=== PATIENT | female | born 1995 | race Two or more races ===

== ENCOUNTER 2021-07-02 08:11 | Emergency (ER) | payer OTHER ==
[~2021-07-02] VITALS: Ht 160 cm; Wt 113.6 kg
[~2021-07-02 08:11] MED LIST: ALBU17AE16 IH; PIOG45TA4 PO
[2021-07-02] MEDS ORDERED: LINA5TAB PO (08:25)
[2021-07-02] MEDS ORDERED: EMPA10TA PO (08:25)
[2021-07-02] MEDS ORDERED: ONDANSETRON HCL 4 MG/2 ML VIAL IVP ONE (09:00)
[2021-07-02] MEDS ORDERED: SODIUM CHLORIDE 0.9% 1,000 ML IV ONE (09:00)
[2021-07-02] MEDS ORDERED: MORPHINE SULFATE 4 MG/ML SYRINGE IVP ONE (09:00)
[2021-07-02 09:06] LABS: BASOPHILS % (AUTO) 0.4 % (0.0-2.0); EOSINOPHILS % (AUTO) 0.5 % (1.0-6.0); HEMATOCRIT 42.3 % (36-46); HEMOGLOBIN 14.4 g/dL (12.0-16.0); LYMPHOCYTES # (AUTO) 2.1 K/uL (1.0-4.8); LYMPHOCYTES % (AUTO) 14.1 % (22.0-44.0); MEAN CORPUSCULAR HEMOGLOBIN 28.2 pg (26.0-34.0); MEAN CORPUSCULAR HGB CONC 34.1 G/dL (31.0-37.0); MEAN CORPUSCULAR VOLUME 83 fL (80-100); MONOCYTES # (AUTO) 0.9 K/uL (0.1-1.0); MONOCYTES % (AUTO) 6.1 % (2.0-9.0); NEUTROPHILS # (AUTO) 11.6 K/uL (1.8-7.7); NEUTROPHILS % (AUTO) 78.9 % (40.0-70.0); PLATELET COUNT (AUTO) 368 K/uL (150-450); RED BLOOD CELL COUNT(AUTO) 5.11 MIL/uL (4.00-5.20); RED CELL DISTRIBUTION WIDTH 13.4 % (11.5-14.5)
[2021-07-02 09:14] LABS: ANION GAP 11 mmol/L (8-16); CALCIUM, TOTAL 8.9 mg/dL (8.8-10.5); CARBON DIOXIDE 25 mmol/L (22-29); CHLORIDE 98 mmol/L (98-107); CREATININE 0.76 mg/dL (0.60-1.30); GLOMERULAR FILTR. RATE CALC > 60 mL/min (>60); GLUCOSE,RANDOM 248 mg/dL (70-110); POTASSIUM 3.8 mmol/L (3.5-5.1); SODIUM SERUM 134 mmol/L (136-145); UREA NITROGEN, BLOOD 14 mg/dL (7-18)
[2021-07-02 09:21] LABS: ALANINE AMINOTRANSFERASE 57 U/L (12-78); ALBUMIN 4.4 g/dL (3.4-5.0); ALKALINE PHOSPHATASE 65 U/L (46-116); ASPARTATE AMINOTRANSFERASE 35 U/L (15-37); BILIRUBIN,TOTAL 0.7 mg/dL (0.1-1.0); LIPASE 34 U/L (73-393); TOTAL PROTEIN, SERUM 8.5 g/dL (6.4-8.2)
[2021-07-02] MEDS ORDERED: IOHEXOL 350 MG/ML 150 ML VIAL ONE (09:35)
[2021-07-02] MEDS ORDERED: SODIUM CHLORIDE 0.9% 100 ML ONE (09:35)
[2021-07-02] MEDS ORDERED: PB/HYOSCY/ATR/SCOP/LIDO/MAALOX 55 ML BOTTLE PO ONE (13:00)
[2021-07-02] MEDS ORDERED: OMEP20 PO (13:02)
[2021-07-02 13:20] LABS: APPEARANCE,URINE CLEAR (CLEAR); BILIRUBIN,URINE NEGATIVE (NEGATIVE); GLUCOSE, URINE (UA) 250 mg/dL (NEGATIVE); KETONES,URINE 40 mg/dL (NEGATIVE); LEUKOCYTE ESTERASE ,URINE TRACE (NEGATIVE); NITRATE,URINE NEGATIVE (NEGATIVE); OCCULT BLOOD,URINE SMALL (NEGATIVE); PROTEIN,URINE NEGATIVE (NEGATIVE); UROBILINOGEN,URINE 0.2 mg/dL (<=1.0)
[2021-07-02 13:23] LABS: BACTERIA,URINE None Seen /HPF (None Seen)
[2021-07-02 13:24] LABS: SQUAMOUS EPITHELIAL CELL,UR Moderate /LPF (None Seen)
[2021-07-02 13:35] VITALS: BP 154/76
[2021-07-03] MEDS ORDERED: [UNRECOGNIZED DRUG - REMARK] CLINICAL (00:08)
[2021-07-05] MEDS ORDERED: UNKNOWN ANTIBIOTIC PO (16:19)
== END 2021-07-02 13:55 | disposition home or self-care (01) ==
LOC: EMS 08:18
DX: K29.70 Gastritis, unspecified, without bleeding (principal); E11.9 Type 2 diabetes mellitus without complications; J45.909 Unspecified asthma, uncomplicated; Z79.899 Other long term (current) drug therapy
CPT/HCPCS: 36415; 74177; 80053; 81001; 81025; 82962; 83690; 84703; 85025; 93005; 96361; 96374; 96375; 99285; J2270; J2405; J7030; J7050; Q9967

== ENCOUNTER 2021-11-20 15:05 | Emergency (ER) | payer OTHER ==
[~2021-11-20] VITALS: Ht 160 cm; Wt 113.6 kg
[~2021-11-20 15:05] MED LIST changes: -ALBU17AE16 IH; +EMPA10TA3 PO; +LINA5TAB PO; +METO-296 PO; +OMEP20 PO; -PIOG45TA4 PO
[2021-11-20] MEDS ORDERED: AMOX1TAB16 PO (16:19)
[2021-11-20] MEDS ORDERED: PERTUSS(ACELL),DIPH,TET VAC/PF 0.5 ML SYRINGE IM. ONE (16:30)
[2021-11-20 16:49] VITALS: BP 131/72
== END 2021-11-20 17:28 | disposition home or self-care (01) ==
LOC: EMS 15:12
DX: S61.452A Open bite of left hand, initial encounter (principal); E11.9 Type 2 diabetes mellitus without complications; F12.90 Cannabis use, unspecified, uncomplicated; J45.909 Unspecified asthma, uncomplicated; K31.84 Gastroparesis; W54.0XXA Bitten by dog, initial encounter; Y93.01 Activity, walking, marching and hiking; Y92.89 Other specified places as the place of occurrence of the external cause; Y99.8 Other external cause status; K21.9 Gastro-esophageal reflux disease without esophagitis; Z90.49 Acquired absence of other specified parts of digestive tract
CPT/HCPCS: 90471; 90715; 99283

== ENCOUNTER 2022-11-18 15:55 | Emergency (ER) | payer OTHER ==
[~2022-11-18] VITALS: Ht 160 cm; Wt 118.2 kg
[~2022-11-18 15:55] MED LIST changes: +AMOX1TAB16 PO; -EMPA10TA3 PO; +LEVO750T68 PO; -LINA5TAB PO; -METO-296 PO; -OMEP20 PO; +ONDA-104 PO; +SEMA1PEN3 SQ; +TRAM-559 PO
[2022-11-18 16:14] VITALS: TEMP 98.6
[2022-11-18] MEDS ORDERED: RABIES VACCINE, HUMAN DIPLOID/PF 2.5 UNITS/ML VIAL IM. ONE (16:30)
[2022-11-18 17:28] VITALS: BP 123/70; PULSE 84; RESP 16
== END 2022-11-18 18:00 | disposition home or self-care (01) ==
LOC: EMS 16:14 → UNDOADMIN 17:50 → 5S 17:50
DX: S91.351D Open bite, right foot, subsequent encounter (principal); Z23 Encounter for immunization; E11.9 Type 2 diabetes mellitus without complications; J45.909 Unspecified asthma, uncomplicated; K21.9 Gastro-esophageal reflux disease without esophagitis; F12.90 Cannabis use, unspecified, uncomplicated; W54.0XXD Bitten by dog, subsequent encounter
CPT/HCPCS: 90471; 90675; 99283; 99285

== ENCOUNTER 2022-11-25 09:16 | Emergency (ER) | payer OTHER ==
[~2022-11-25] VITALS: Ht 160 cm; Wt 118.2 kg
[2022-11-25 09:22] VITALS: TEMP 98.8
[2022-11-25] MEDS ORDERED: RABIES VACCINE, HUMAN DIPLOID/PF 2.5 UNITS/ML VIAL IM. ONE (09:45)
[2022-11-25 10:36] VITALS: BP 145/63; PULSE 75; RESP 18
== END 2022-11-25 11:06 | disposition home or self-care (01) ==
LOC: EMS 09:19
DX: S91.351D Open bite, right foot, subsequent encounter (principal); J45.909 Unspecified asthma, uncomplicated; E11.9 Type 2 diabetes mellitus without complications; F12.90 Cannabis use, unspecified, uncomplicated; Z23 Encounter for immunization; Z87.891 Personal history of nicotine dependence; Z90.49 Acquired absence of other specified parts of digestive tract; W54.0XXD Bitten by dog, subsequent encounter
CPT/HCPCS: 82962; 90471; 90675; 99282

== ENCOUNTER 2023-03-14 15:47 | Inpatient (IN) | payer OTHER ==
[~2023-03-14] VITALS: Ht 160 cm; Wt 113.6 kg
[~2023-03-14 15:47] MED LIST changes: -AMOX1TAB16 PO; +DOCU-385 PO; -LEVO750T68 PO; +METO5TAB87 PO; +OMEP-99 PO
[2023-03-14 16:26] LABS: GLUCOMETER DEV NAME(LOC) ERT.5; GLUCOSE,POINT OF CARE 364 MG/DL (70-110)
[2023-03-14] MEDS ORDERED: SODIUM CHLORIDE 0.9% 1,000 ML IV ONE (18:00)
[2023-03-14] MEDS ORDERED: METOCLOPRAMIDE HCL 5 MG/ML 2 ML VIAL IVP ONE (18:00)
[2023-03-14] MEDS ORDERED: SEMA0.258 SQ (18:06)
[2023-03-14] MEDS ORDERED: FAMOTIDINE 20 MG/2 ML VIAL IVP ONE (18:30)
[2023-03-14 19:07] LABS: BASOPHILS % (AUTO) 0.1 % (0.0-2.0); EOSINOPHILS % (AUTO) 0 % (1.0-6.0); HEMATOCRIT 43.4 % (36-46); HEMOGLOBIN 14.3 g/dL (12.0-16.0); LYMPHOCYTES # (AUTO) 1.3 K/uL (1.0-4.8); LYMPHOCYTES % (AUTO) 8.2 % (22.0-44.0); MEAN CORPUSCULAR HEMOGLOBIN 27.6 pg (26.0-34.0); MEAN CORPUSCULAR HGB CONC 33.1 G/dL (31.0-37.0); MEAN CORPUSCULAR VOLUME 84 fL (80-100); MONOCYTES # (AUTO) 1.2 K/uL (0.1-1.0); MONOCYTES % (AUTO) 7.3 % (2.0-9.0); NEUTROPHILS # (AUTO) 13.4 K/uL (1.8-7.7); NEUTROPHILS % (AUTO) 84.4 % (40.0-70.0); PLATELET COUNT (AUTO) 375 K/uL (150-450); RED CELL DISTRIBUTION WIDTH 13.8 % (11.5-14.5); WHITE BLOOD COUNT (AUTO) 15.9 K/uL (4.5-11.0)
[2023-03-14 19:44] LABS: ANION GAP 14 mmol/L (8-16); CALCIUM, TOTAL 10.3 mg/dL (8.8-10.5); CARBON DIOXIDE 29 mmol/L (22-29); CHLORIDE 93 mmol/L (98-107); CREATININE 0.87 mg/dL (0.60-1.30); GLOMERULAR FILTR. RATE CALC > 60 mL/min (>60); GLUCOSE,RANDOM 346 mg/dL (70-110); POTASSIUM 3.4 mmol/L (3.5-5.1); SODIUM SERUM 136 mmol/L (136-145); UREA NITROGEN, BLOOD 25 mg/dL (7-18)
[2023-03-14 19:55] LABS: ALANINE AMINOTRANSFERASE 38 U/L (12-78); ALBUMIN 4.5 g/dL (3.4-5.0); ALKALINE PHOSPHATASE 91 U/L (46-116); ASPARTATE AMINOTRANSFERASE 25 U/L (15-37); BILIRUBIN,TOTAL 0.6 mg/dL (0.1-1.0); HCG,QUANTITATIVE < 1 mIU/mL (0-6); LIPASE 15 U/L (16-77); TOTAL PROTEIN, SERUM 8.5 g/dL (6.4-8.2)
[2023-03-14] MEDS ORDERED: HYDROmorphone HCL 2 MG/ML SYRINGE IVP ONE (21:00)
[2023-03-14] MEDS ORDERED: SODIUM CHLORIDE 0.9% 2,400 ML IV ONE (21:45)
[2023-03-14] MEDS ORDERED: HYDROCODONE/ACETAMINOPHEN 5-325 MG TABLET PO PRN (21:45)
[2023-03-14] MEDS ORDERED: NALOXONE HCL 1 MG/ML 2 ML SYRINGE IVP PRN (21:45)
[2023-03-14] MEDS ORDERED: MAGNESIUM SULFATE 4 GM/WATER 100 ML IV PRN (21:45)
[2023-03-14] MEDS ORDERED: MAGNESIUM OXIDE 400 MG TABLET PO PRN (21:45)
[2023-03-14] MEDS ORDERED: MAGNESIUM SULFATE 2 GM/WATER 50 ML IV PRN (21:45)
[2023-03-14] MEDS ORDERED: ACETAMINOPHEN 325 MG TABLET PO PRN (21:45)
[2023-03-14] MEDS ORDERED: DEXTROSE 50%-WATER 25 GM/50 ML SYRINGE IVP PRN (21:45)
[2023-03-14] MEDS: INSULIN LISPRO 100 UNITS/ML SQ PRN (22:10)
[2023-03-14] MEDS: INSULIN GLARGINE,HUM.REC.ANLOG 100 UNITS/ML SQ SCH (22:11)
[2023-03-14] MEDS: CefTRIAXone SODIUM 2 GM in DEXTROSE 5%-WATER 50 ML IV SCH (22:16)
[2023-03-14 22:21] LABS: GLUCOMETER DEV NAME(LOC) ER.6; GLUCOSE,POINT OF CARE 314 MG/DL (70-110)
[2023-03-14 23:17] LABS: COVID AG,FIA SOURCE NASAL SWAB
[2023-03-14 23:19] LABS: APPEARANCE,URINE HAZY (CLEAR); BILIRUBIN,URINE NEGATIVE (NEGATIVE); COLOR,URINE YELLOW (YELLOW); GLUCOSE, URINE (UA) >=1000 mg/dL (NEGATIVE); KETONES,URINE 40-60 mg/dL (NEGATIVE); LEUKOCYTE ESTERASE ,URINE SMALL (NEGATIVE); NITRATE,URINE NEGATIVE (NEGATIVE); OCCULT BLOOD,URINE SMALL (NEGATIVE); PROTEIN,URINE 300-600,SEE CONFIRM mg/dL (NEGATIVE); SPECIFIC GRAVITIY, URINE 1.042 (1.003-1.030); UROBILINOGEN,URINE <=1.0 mg/dL (<=1.0)
[2023-03-14 23:22] VITALS: BP 148/56; PULSE 82; RESP 18; TEMP 98.5
[2023-03-14 23:30] LABS: SULFOSALICYLIC ACID,URINE 3+ (Negative)
[2023-03-14 23:31] LABS: BACTERIA,URINE Few /HPF (None Seen); SQUAMOUS EPITHELIAL CELL,UR Many /LPF (None Seen)
[2023-03-14] MEDS: HEPARIN SODIUM,PORCINE 5,000 UNITS/ML VIAL SQ SCH (23:39)
[2023-03-14 23:40] LABS: SARS-COV2 (COVID) ANTIGEN,FIA Negative (Negative)
[2023-03-14] MEDS: POTASSIUM CHLORIDE 20 MEQ ER TABLET PO PRN (23:44)
[2023-03-15] MEDS ORDERED: SODIUM CHLORIDE 0.9% 500 ML IV ONE (00:05)
[2023-03-15] MEDS ORDERED: INFLUENZA VIRUS VACCINE QVS 2023-24 (6MO+)/PF 60 MCG/0.5 ML SYRINGE IM. ONE (02:45)
[2023-03-15] MEDS ORDERED: PNEUMOCOCCAL VACCINE POLYVALENT 0.5 ML SYRINGE [PPSV23] IM. ONE (02:45)
[2023-03-15] MEDS: HYDROmorphone HCL 2 MG/ML SYRINGE IVP PRN ×4 (03:07→23:03)
[2023-03-15] MEDS: POTASSIUM CHLORIDE 20 MEQ ER TABLET PO PRN (03:18)
[2023-03-15 06:00] VITALS: BP 162/89; PULSE 83; RESP 18; TEMP 97.9
[2023-03-15] MEDS: INSULIN LISPRO 100 UNITS/ML SQ PRN ×4 (06:13→21:07)
[2023-03-15 07:00] LABS: BASOPHILS % (AUTO) 0.1 % (0.0-2.0); EOSINOPHILS % (AUTO) 0.1 % (1.0-6.0); HEMATOCRIT 40.2 % (36-46); HEMOGLOBIN 13.4 g/dL (12.0-16.0); LYMPHOCYTES # (AUTO) 2.1 K/uL (1.0-4.8); LYMPHOCYTES % (AUTO) 14.8 % (22.0-44.0); MEAN CORPUSCULAR HGB CONC 33.3 G/dL (31.0-37.0); MEAN CORPUSCULAR VOLUME 84 fL (80-100); MONOCYTES # (AUTO) 1.3 K/uL (0.1-1.0); MONOCYTES % (AUTO) 9.2 % (2.0-9.0); NEUTROPHILS # (AUTO) 10.7 K/uL (1.8-7.7); NEUTROPHILS % (AUTO) 75.8 % (40.0-70.0); PLATELET COUNT (AUTO) 344 K/uL (150-450); RED BLOOD CELL COUNT(AUTO) 4.78 MIL/uL (4.00-5.20); RED CELL DISTRIBUTION WIDTH 13.9 % (11.5-14.5); WHITE BLOOD COUNT (AUTO) 14.1 K/uL (4.5-11.0)
[2023-03-15 07:12] LABS: GLUCOMETER DEV NAME(LOC) 6S.2; GLUCOSE,POINT OF CARE 230 MG/DL (70-110)
[2023-03-15 07:35] LABS: ANION GAP 11 mmol/L (8-16); CARBON DIOXIDE 28 mmol/L (22-29); CHLORIDE 100 mmol/L (98-107); CREATININE 0.63 mg/dL (0.60-1.30); GLOMERULAR FILTR. RATE CALC > 60 mL/min (>60); GLUCOSE,RANDOM 249 mg/dL (70-110); POTASSIUM 3.7 mmol/L (3.5-5.1); SODIUM SERUM 139 mmol/L (136-145); UREA NITROGEN, BLOOD 14 mg/dL (7-18)
[2023-03-15 08:30] VITALS: BP 146/84; PULSE 71; RESP 19; TEMP 97.8
[2023-03-15] MEDS: DOCUSATE SODIUM 100 MG CAPSULE PO SCH ×3 (08:49→21:00)
[2023-03-15] MEDS: HEPARIN SODIUM,PORCINE 5,000 UNITS/ML VIAL SQ SCH ×2 (08:49→17:39)
[2023-03-15] MEDS ORDERED: SODIUM CHLORIDE 0.9% 100 ML ONE (10:57)
[2023-03-15] MEDS ORDERED: IOHEXOL 350 MG/ML 100 ML VIAL ONE (10:57)
[2023-03-15] MEDS: ONDANSETRON HCL 4 MG/2 ML VIAL IVP PRN ×2 (12:08→18:16)
[2023-03-15 13:11] LABS: GLUCOMETER DEV NAME(LOC) 6N.2B; GLUCOSE,POINT OF CARE 294 MG/DL (70-110)
[2023-03-15 16:58] VITALS: BP 159/100; PULSE 78; RESP 18; TEMP 98
[2023-03-15 18:56] LABS: GLUCOMETER DEV NAME(LOC) 4E.2; GLUCOSE,POINT OF CARE 219 MG/DL (70-110)
[2023-03-15 19:52] VITALS: BP 154/87; PULSE 94; RESP 18; TEMP 97.7
[2023-03-15] MEDS ORDERED: NITROGLYCERIN 2% (1 GM=INCH) OINTMENT PACKET TP ONE (20:30)
[2023-03-15] MEDS: INSULIN GLARGINE,HUM.REC.ANLOG 100 UNITS/ML SQ SCH (21:07)
[2023-03-15] MEDS: CefTRIAXone SODIUM 2 GM in DEXTROSE 5%-WATER 50 ML IV SCH (21:08)
[2023-03-15 21:24] LABS: HCG,QUAL URINE NEGATIVE (NEGATIVE)
[2023-03-15 21:30] LABS: AMPHET/METH SCREEN,URINE NEGATIVE (NEGATIVE); BARBITURATE SCREEN, URINE NEGATIVE (NEGATIVE); BENZODIAZEPINES SCREEN,URINE NEGATIVE (NEGATIVE); CANNABINOID SCREEN,URINE NEGATIVE (NEGATIVE); COCAINE SCREEN,URINE NEGATIVE (NEGATIVE); METHADONE SCREEN, URINE NEGATIVE (NEGATIVE); OPIATE SCREEN,URINE NEGATIVE (NEGATIVE); PHENCYCLIDINE SCREEN,URINE NEGATIVE (NEGATIVE)
[2023-03-15 21:35] LABS: ALCOHOL, URINE DRUG SCREEN NEGATIVE (NEGATIVE)
[2023-03-16] MEDS: HEPARIN SODIUM,PORCINE 5,000 UNITS/ML VIAL SQ SCH ×3 (00:04→16:26)
[2023-03-16] MEDS: ONDANSETRON HCL 4 MG/2 ML VIAL IVP PRN ×4 (00:04→22:35)
[2023-03-16 04:07] VITALS: BP 154/92; PULSE 86; RESP 18; TEMP 97.5
[2023-03-16] MEDS: INSULIN LISPRO 100 UNITS/ML SQ PRN ×4 (05:37→21:33)
[2023-03-16 06:11] LABS: GLUCOMETER DEV NAME(LOC) 4E.2; GLUCOSE,POINT OF CARE 230 MG/DL (70-110)
[2023-03-16 06:11] LABS: GLUCOMETER DEV NAME(LOC) 4E.2; GLUCOSE,POINT OF CARE 239 MG/DL (70-110)
[2023-03-16] MEDS: DOCUSATE SODIUM 100 MG CAPSULE PO SCH ×3 (07:54→21:22)
[2023-03-16] MEDS: NITROGLYCERIN 2% (1 GM=INCH) OINTMENT PACKET TP SCH ×2 (07:55→21:23)
[2023-03-16] MEDS: HYDROmorphone HCL 2 MG/ML SYRINGE IVP PRN ×4 (08:05→16:33)
[2023-03-16 09:19] VITALS: BP 178/103; PULSE 99; RESP 20; TEMP 98.4
[2023-03-16] MEDS ORDERED: SODIUM CHLORIDE 0.9% 1,000 ML IV ONE (10:15)
[2023-03-16 10:51] VITALS: BP 156/92; PULSE 84; RESP 20; TEMP 98.4
[2023-03-16 11:42] LABS: GLUCOMETER DEV NAME(LOC) 6S.2; GLUCOSE,POINT OF CARE 257 MG/DL (70-110)
[2023-03-16 16:08] VITALS: BP 140/82; PULSE 90; RESP 20; TEMP 98.1
[2023-03-16 18:57] LABS: GLUCOMETER DEV NAME(LOC) 4E.2; GLUCOSE,POINT OF CARE 198 MG/DL (70-110)
[2023-03-16 20:03] VITALS: BP 154/73; PULSE 83; RESP 20; TEMP 98.2
[2023-03-16] MEDS: INSULIN GLARGINE,HUM.REC.ANLOG 100 UNITS/ML SQ SCH (21:30)
[2023-03-16] MEDS ORDERED: METOCLOPRAMIDE HCL 5 MG/ML 2 ML VIAL IVP ONE (22:30)
[2023-03-16] MEDS: CefTRIAXone SODIUM 2 GM in DEXTROSE 5%-WATER 50 ML IV SCH (22:35)
[2023-03-17] MEDS: HEPARIN SODIUM,PORCINE 5,000 UNITS/ML VIAL SQ SCH ×4 (00:20→23:43)
[2023-03-17] MEDS: HYDROmorphone HCL 2 MG/ML SYRINGE IVP PRN ×3 (00:37→23:53)
[2023-03-17 04:10] VITALS: BP 151/78; PULSE 92; RESP 18; TEMP 98.8
[2023-03-17] MEDS: INSULIN LISPRO 100 UNITS/ML SQ PRN ×4 (06:04→20:49)
[2023-03-17 06:21] LABS: GLUCOMETER DEV NAME(LOC) 4E.2; GLUCOSE,POINT OF CARE 213 MG/DL (70-110)
[2023-03-17 06:21] LABS: GLUCOMETER DEV NAME(LOC) 4E.2; GLUCOSE,POINT OF CARE 195 MG/DL (70-110)
[2023-03-17] MEDS: DOCUSATE SODIUM 100 MG CAPSULE PO SCH ×3 (07:51→20:31)
[2023-03-17] MEDS: NITROGLYCERIN 2% (1 GM=INCH) OINTMENT PACKET TP SCH ×2 (07:52→20:37)
[2023-03-17 08:44] VITALS: BP 138/71; PULSE 87; RESP 18; TEMP 98.2
[2023-03-17] MEDS: METOCLOPRAMIDE HCL 5 MG/ML 2 ML VIAL IVP PRN (15:38)
[2023-03-17 15:41] VITALS: BP 146/62; PULSE 81; RESP 20; TEMP 98.2
[2023-03-17 20:13] VITALS: BP 154/83; PULSE 85; RESP 20; TEMP 98.6
[2023-03-17 20:42] LABS: GLUCOMETER DEV NAME(LOC) 6N.2B; GLUCOSE,POINT OF CARE 202 MG/DL (70-110)
[2023-03-17] MEDS: INSULIN GLARGINE,HUM.REC.ANLOG 100 UNITS/ML SQ SCH (20:47)
[2023-03-17] MEDS: ONDANSETRON HCL 4 MG/2 ML VIAL IVP PRN (20:54)
[2023-03-17 22:36] LABS: GLUCOMETER DEV NAME(LOC) 6S.2; GLUCOSE,POINT OF CARE 208 MG/DL (70-110)
[2023-03-17 22:37] LABS: GLUCOMETER DEV NAME(LOC) 6S.2; GLUCOSE,POINT OF CARE 207 MG/DL (70-110)
[2023-03-18] MEDS: INSULIN LISPRO 100 UNITS/ML SQ PRN ×4 (06:13→20:49)
[2023-03-18 06:41] LABS: BASOPHILS % (AUTO) 0.1 % (0.0-2.0); EOSINOPHILS % (AUTO) 1.4 % (1.0-6.0); HEMATOCRIT 41.4 % (36-46); HEMOGLOBIN 13.8 g/dL (12.0-16.0); LYMPHOCYTES # (AUTO) 1.8 K/uL (1.0-4.8); LYMPHOCYTES % (AUTO) 18.6 % (22.0-44.0); MEAN CORPUSCULAR HEMOGLOBIN 27.7 pg (26.0-34.0); MEAN CORPUSCULAR HGB CONC 33.4 G/dL (31.0-37.0); MEAN CORPUSCULAR VOLUME 83 fL (80-100); MONOCYTES # (AUTO) 1.1 K/uL (0.1-1.0); MONOCYTES % (AUTO) 11.4 % (2.0-9.0); NEUTROPHILS # (AUTO) 6.7 K/uL (1.8-7.7); NEUTROPHILS % (AUTO) 68.5 % (40.0-70.0); PLATELET COUNT (AUTO) 293 K/uL (150-450); RED BLOOD CELL COUNT(AUTO) 4.99 MIL/uL (4.00-5.20); RED CELL DISTRIBUTION WIDTH 13.5 % (11.5-14.5); WHITE BLOOD COUNT (AUTO) 9.8 K/uL (4.5-11.0)
[2023-03-18 07:11] LABS: GLUCOMETER DEV NAME(LOC) 6S.2; GLUCOSE,POINT OF CARE 193 MG/DL (70-110)
[2023-03-18 07:14] LABS: ALANINE AMINOTRANSFERASE 58 U/L (12-78); ALBUMIN 3.6 g/dL (3.4-5.0); ALKALINE PHOSPHATASE 52 U/L (46-116); ANION GAP 10 mmol/L (8-16); ASPARTATE AMINOTRANSFERASE 33 U/L (15-37); BILIRUBIN,TOTAL 0.5 mg/dL (0.1-1.0); CALCIUM, TOTAL 8.9 mg/dL (8.8-10.5); CARBON DIOXIDE 32 mmol/L (22-29); CHLORIDE 94 mmol/L (98-107); CREATININE 0.64 mg/dL (0.60-1.30); GLOMERULAR FILTR. RATE CALC > 60 mL/min (>60); GLUCOSE,RANDOM 194 mg/dL (70-110); SODIUM SERUM 136 mmol/L (136-145); TOTAL PROTEIN, SERUM 6.9 g/dL (6.4-8.2); UREA NITROGEN, BLOOD 9 mg/dL (7-18)
[2023-03-18 07:46] LABS: POTASSIUM 2.9 mmol/L (3.5-5.1)
[2023-03-18 07:58] VITALS: BP 162/94; PULSE 88; RESP 20; TEMP 98.3
[2023-03-18 08:00] VITALS: BP 166/88
[2023-03-18] MEDS: DOCUSATE SODIUM 100 MG CAPSULE PO SCH ×2 (08:45→21:00)
[2023-03-18] MEDS: HEPARIN SODIUM,PORCINE 5,000 UNITS/ML VIAL SQ SCH ×3 (08:45→23:14)
[2023-03-18] MEDS: POTASSIUM CHL 10 MEQ/WATER 50 ML IV PRN ×4 (08:46→16:25)
[2023-03-18] MEDS: NITROGLYCERIN 2% (1 GM=INCH) OINTMENT PACKET TP SCH ×2 (09:00→20:43)
[2023-03-18] MEDS ORDERED: SODIUM CHLORIDE 0.9% 500 ML IV ONE ×2 (09:24→11:02)
[2023-03-18 13:42] LABS: GLUCOMETER DEV NAME(LOC) 4E.2; GLUCOSE,POINT OF CARE 218 MG/DL (70-110)
[2023-03-18 16:57] VITALS: BP 143/86; PULSE 90; RESP 20; TEMP 99.4
[2023-03-18 18:32] LABS: GLUCOMETER DEV NAME(LOC) 6S.2; GLUCOSE,POINT OF CARE 265 MG/DL (70-110)
[2023-03-18 19:32] VITALS: BP 124/82; PULSE 99; RESP 20; TEMP 99.2
[2023-03-18] MEDS: INSULIN GLARGINE,HUM.REC.ANLOG 100 UNITS/ML SQ SCH (20:49)
[2023-03-18 22:21] LABS: GLUCOMETER DEV NAME(LOC) 6S.2; GLUCOSE,POINT OF CARE 324 MG/DL (70-110)
[2023-03-18] MEDS: POTASSIUM CHLORIDE 20 MEQ ER TABLET PO PRN (23:14)
[2023-03-19 05:08] VITALS: BP 136/96; PULSE 92; RESP 20; TEMP 97.6
[2023-03-19] MEDS: ONDANSETRON HCL 4 MG/2 ML VIAL IVP PRN (05:42)
[2023-03-19] MEDS: HYDROmorphone HCL 2 MG/ML SYRINGE IVP PRN (05:48)
[2023-03-19] MEDS: INSULIN LISPRO 100 UNITS/ML SQ PRN ×4 (05:59→20:33)
[2023-03-19 06:51] LABS: GLUCOMETER DEV NAME(LOC) 6S.2; GLUCOSE,POINT OF CARE 238 MG/DL (70-110)
[2023-03-19] MEDS: METOCLOPRAMIDE HCL 5 MG/ML 2 ML VIAL IVP PRN (08:32)
[2023-03-19 08:33] VITALS: BP 141/82; PULSE 87; RESP 20; TEMP 99.3
[2023-03-19] MEDS: DOCUSATE SODIUM 100 MG CAPSULE PO SCH ×2 (08:33→20:29)
[2023-03-19] MEDS: NITROGLYCERIN 2% (1 GM=INCH) OINTMENT PACKET TP SCH ×2 (08:33→20:29)
[2023-03-19] MEDS: HEPARIN SODIUM,PORCINE 5,000 UNITS/ML VIAL SQ SCH ×3 (08:33→23:10)
[2023-03-19] MEDS ORDERED: SODIUM CHLORIDE 0.9% 500 ML IV ONE (08:49)
[2023-03-19] MEDS: POTASSIUM CHL 10 MEQ/WATER 50 ML IV PRN ×4 (09:27→14:01)
[2023-03-19 15:28] VITALS: BP 103/59; PULSE 91; RESP 20; TEMP 98.5
[2023-03-19] MEDS ORDERED: ONDA-104 PO (16:28)
[2023-03-19 18:26] LABS: GLUCOMETER DEV NAME(LOC) 6N.2B; GLUCOSE,POINT OF CARE 289 MG/DL (70-110)
[2023-03-19 18:26] LABS: GLUCOMETER DEV NAME(LOC) 4E.2; GLUCOSE,POINT OF CARE 264 MG/DL (70-110)
[2023-03-19 19:19] VITALS: BP 128/86; PULSE 91; RESP 18; TEMP 98.5
[2023-03-19] MEDS: INSULIN GLARGINE,HUM.REC.ANLOG 100 UNITS/ML SQ SCH (20:34)
[2023-03-20 02:01] LABS: GLUCOMETER DEV NAME(LOC) 4E.2; GLUCOSE,POINT OF CARE 273 MG/DL (70-110)
[2023-03-20 03:42] VITALS: BP 121/77; PULSE 88; RESP 18; TEMP 98.2
[2023-03-20] MEDS: INSULIN LISPRO 100 UNITS/ML SQ PRN (06:14)
[2023-03-20 07:46] LABS: ALANINE AMINOTRANSFERASE 73 U/L (12-78); ALBUMIN 3.7 g/dL (3.4-5.0); ALKALINE PHOSPHATASE 62 U/L (46-116); ANION GAP 7 mmol/L (8-16); ASPARTATE AMINOTRANSFERASE 33 U/L (15-37); BILIRUBIN,TOTAL 0.4 mg/dL (0.1-1.0); CALCIUM, TOTAL 9.4 mg/dL (8.8-10.5); CARBON DIOXIDE 28 mmol/L (22-29); CHLORIDE 96 mmol/L (98-107); CREATININE 0.68 mg/dL (0.60-1.30); GLOMERULAR FILTR. RATE CALC > 60 mL/min (>60); GLUCOSE,RANDOM 269 mg/dL (70-110); POTASSIUM 4.1 mmol/L (3.5-5.1); SODIUM SERUM 131 mmol/L (136-145); UREA NITROGEN, BLOOD 8 mg/dL (7-18)
[2023-03-20 08:16] LABS: GLUCOMETER DEV NAME(LOC) 6S.2; GLUCOSE,POINT OF CARE 276 MG/DL (70-110)
[2023-03-20 08:16] LABS: TOTAL PROTEIN, SERUM 7.1 g/dL (6.4-8.2)
[2023-03-20] MEDS: NITROGLYCERIN 2% (1 GM=INCH) OINTMENT PACKET TP SCH (08:37)
[2023-03-20] MEDS: HEPARIN SODIUM,PORCINE 5,000 UNITS/ML VIAL SQ SCH (08:37)
[2023-03-20] MEDS: DOCUSATE SODIUM 100 MG CAPSULE PO SCH (08:37)
[2023-03-20 09:02] VITALS: BP 137/83; PULSE 81; RESP 20; TEMP 98.4
== END 2023-03-20 13:56 | disposition home or self-care (01) | DRG 720 ==
LOC: EMS 15:50 → 6N 21:20
PROVIDERS: ADMIT Internal Medicine; ATTEND Internal Medicine
PROC: 05HF33Z Insertion of Infusion Device into Left Cephalic Vein, Percutaneous Approach (ICD-10-PCS; principal; 2023-03-18)
PROC: B54NZZA Ultrasonography of Left Upper Extremity Veins, Guidance (ICD-10-PCS; 2023-03-18)
DX: A41.9 Sepsis, unspecified organism (principal); E11.43 Type 2 diabetes mellitus with diabetic autonomic (poly)neuropathy; K31.84 Gastroparesis; E11.65 Type 2 diabetes mellitus with hyperglycemia; E66.01 Morbid (severe) obesity due to excess calories; N10 Acute pyelonephritis; E78.5 Hyperlipidemia, unspecified; Z20.822 Contact with and (suspected) exposure to COVID-19; E87.6 Hypokalemia; Z87.442 Personal history of urinary calculi; Z87.440 Personal history of urinary (tract) infections; Z79.899 Other long term (current) drug therapy; Z68.41 Body mass index [BMI] 40.0-44.9, adult; Z90.49 Acquired absence of other specified parts of digestive tract
CPT/HCPCS: 36245; 36569; 74177; 76937; 80048; 80053; 80307; 81001; 81002; 82040; 82962; 83690; 83735; 84132; 84702; 84703; 85025; 99285; J0696; J1170; J1644; J1815; J2405; J2765; J3480; J3490; J7030; J7040; J7050; J7060; Q9967

== ENCOUNTER 2023-05-04 07:05 | Emergency (ER) | payer OTHER ==
[~2023-05-04] VITALS: Ht 160 cm; Wt 118.2 kg
[~2023-05-04 07:05] MED LIST changes: +CEPH-558 PO; -DOCU-385 PO; +SEMA0.258 SQ; -SEMA1PEN3 SQ
[2023-05-04 07:13] VITALS: TEMP 98.8
[2023-05-04] MEDS ORDERED: EMPA10TA3 PO (07:17)
[2023-05-04] MEDS ORDERED: LISI10TA24 PO (07:17)
[2023-05-04 07:30] LABS: GLUCOMETER DEV NAME(LOC) ER.6; GLUCOSE,POINT OF CARE 234 MG/DL (70-110)
[2023-05-04 07:51] LABS: BASOPHILS % (AUTO) 0.5 % (0.0-2.0); EOSINOPHILS % (AUTO) 0.9 % (1.0-6.0); HEMATOCRIT 40.6 % (36-46); HEMOGLOBIN 13.8 g/dL (12.0-16.0); LYMPHOCYTES # (AUTO) 1.3 K/uL (1.0-4.8); LYMPHOCYTES % (AUTO) 11.6 % (22.0-44.0); MEAN CORPUSCULAR HEMOGLOBIN 28.6 pg (26.0-34.0); MEAN CORPUSCULAR VOLUME 84 fL (80-100); MONOCYTES # (AUTO) 0.6 K/uL (0.1-1.0); MONOCYTES % (AUTO) 5.1 % (2.0-9.0); NEUTROPHILS # (AUTO) 9.4 K/uL (1.8-7.7); NEUTROPHILS % (AUTO) 81.9 % (40.0-70.0); PLATELET COUNT (AUTO) 311 K/uL (150-450); RED BLOOD CELL COUNT(AUTO) 4.82 MIL/uL (4.00-5.20); RED CELL DISTRIBUTION WIDTH 14.3 % (11.5-14.5); WHITE BLOOD COUNT (AUTO) 11.5 K/uL (4.5-11.0)
[2023-05-04 08:00] LABS: ANION GAP 13 mmol/L (8-16); CARBON DIOXIDE 25 mmol/L (22-29); CHLORIDE 98 mmol/L (98-107); CREATININE 0.74 mg/dL (0.60-1.30); GLOMERULAR FILTR. RATE CALC > 60 mL/min (>60); GLUCOSE,RANDOM 244 mg/dL (70-110); POTASSIUM 3.9 mmol/L (3.5-5.1); SODIUM SERUM 136 mmol/L (136-145); UREA NITROGEN, BLOOD 14 mg/dL (7-18)
[2023-05-04 08:10] LABS: ALANINE AMINOTRANSFERASE 43 U/L (12-78); ALBUMIN 4.1 g/dL (3.4-5.0); ALKALINE PHOSPHATASE 71 U/L (46-116); ASPARTATE AMINOTRANSFERASE 23 U/L (15-37); BILIRUBIN,TOTAL 0.5 mg/dL (0.1-1.0); HCG,QUANTITATIVE < 1 mIU/mL (0-6); LIPASE 25 U/L (16-77); TOTAL PROTEIN, SERUM 8.6 g/dL (6.4-8.2)
[2023-05-04] MEDS: KETOROLAC TROMETHAMINE 30 MG/ML VIAL IVP ONE (08:22)
[2023-05-04] MEDS: ONDANSETRON HCL 4 MG/2 ML VIAL IVP ONE (08:22)
[2023-05-04] MEDS: SODIUM CHLORIDE 0.9% 1,000 ML IV ONE ×2 (08:23→09:52)
[2023-05-04 09:57] LABS: APPEARANCE,URINE HAZY (CLEAR); BILIRUBIN,URINE NEGATIVE (NEGATIVE); COLOR,URINE YELLOW (YELLOW); GLUCOSE, URINE (UA) >=1000 mg/dL (NEGATIVE); KETONES,URINE 80-100 mg/dL (NEGATIVE); LEUKOCYTE ESTERASE ,URINE MODERATE (NEGATIVE); NITRATE,URINE NEGATIVE (NEGATIVE); OCCULT BLOOD,URINE NEGATIVE (NEGATIVE); PROTEIN,URINE TRACE mg/dL (NEGATIVE); SPECIFIC GRAVITIY, URINE 1.047 (1.003-1.030); UROBILINOGEN,URINE <=1.0 mg/dL (<=1.0)
[2023-05-04 10:03] LABS: ALCOHOL, URINE DRUG SCREEN NEGATIVE (NEGATIVE); AMPHET/METH SCREEN,URINE NEGATIVE (NEGATIVE); BARBITURATE SCREEN, URINE NEGATIVE (NEGATIVE); BENZODIAZEPINES SCREEN,URINE NEGATIVE (NEGATIVE); CANNABINOID SCREEN,URINE POSITIVE (NEGATIVE); COCAINE SCREEN,URINE NEGATIVE (NEGATIVE); METHADONE SCREEN, URINE NEGATIVE (NEGATIVE); OPIATE SCREEN,URINE NEGATIVE (NEGATIVE); PHENCYCLIDINE SCREEN,URINE NEGATIVE (NEGATIVE)
[2023-05-04 10:27] LABS: BACTERIA,URINE Many /HPF (None Seen); RBC,URINE 0-2 /HPF (0-2)
[2023-05-04 10:28] LABS: SQUAMOUS EPITHELIAL CELL,UR Many /LPF (None Seen)
[2023-05-04] MEDS: HALOPERIDOL LACTATE 5 MG/ML VIAL IVP ONE (10:57)
[2023-05-04 11:30] LABS: GLUCOMETER DEV NAME(LOC) ERT.5; GLUCOSE,POINT OF CARE 253 MG/DL (70-110)
[2023-05-04] MEDS ORDERED: NITR-75 PO (12:24)
[2023-05-04 12:47] VITALS: BP 122/80; PULSE 94; RESP 18
== END 2023-05-04 12:58 | disposition home or self-care (01) ==
LOC: EMS 07:06
DX: N39.0 Urinary tract infection, site not specified (principal); R11.10 Vomiting, unspecified; E11.9 Type 2 diabetes mellitus without complications; J45.909 Unspecified asthma, uncomplicated; E78.5 Hyperlipidemia, unspecified; F12.90 Cannabis use, unspecified, uncomplicated; Z90.49 Acquired absence of other specified parts of digestive tract
CPT/HCPCS: 99285; 96374; 96361; 96375; 80053; 82962; 83690; 84702; 85025; 36415; 87086; 87186; 93005; 80307; 81001; J1630; J1885; J2405; J7030